=== PATIENT | male | born 1995 | race Caucasian/White ===

== ENCOUNTER 2017-10-28 15:11 | Outpatient (CLI) | payer OTHER | END 2017-10-28 15:19 | disposition home or self-care (01) | LOC: RAD 15:11 | DX: M54.2 Cervicalgia (principal); M54.5 Low back pain; M54.6 Pain in thoracic spine ==

== ENCOUNTER → 2023-02-18 07:21 | Outpatient (CLI) | payer OTHER ==
[2023-02-18 08:15] LABS: HEMATOCRIT 44.7 % (39.0-48.0); HEMOGLOBIN 15.6 g/dL (13-16.00); MEAN CELL VOLUME 83.2 fL (80.0-100.00); MEAN CORPUSCULAR HGB CONC 34.8 g/dl (32.0-36.0); PLATELET COUNT 223 K/uL (150-450); RED BLOOD COUNT 5.37 M/uL (4.00-6.00); RED CELL DISTRIBUTION WIDTH 12.9 % (11.5-14.5)
[2023-02-18 08:45] LABS: ALBUMIN 4.5 gm/dL (3.4-5.0); BILIRUBIN TOTAL 1.08 mg/dL (0.3-1.2); CALCIUM 9.4 mg/dL (8.5-10.1); CHOL HDL RATIO 2.7 (0-5.0); CREATININE SERUM 1.07 mg/dL (0.70-1.30); GFR 81.15; GLOBULINA 3.5 G/DL (2.4-3.5); POTASSIUM 4.07 mEq/L (3.5-5.1); TSH 2.6 uIU/mL (0.358-3.74)
[2023-02-18 08:47] LABS: URIC ACID 4.2 mg/dL (3.5-8.5)
[2023-02-18 09:18] LABS: URINE APPEARANCE Clear; URINE BILIRRUBIN Negative (NEGATIVE); URINE BLOOD Negative; URINE COLOR Yellow; URINE GLUCOSE Negative (NEGATIVE); URINE LEUKOCYTE Negative; URINE NITRATE Negative; URINE PROTEIN Negative (NEGATIVE); URINE UROBILINOGEN 0.2 E.U./dl
[2023-02-18 09:49] LABS: URINE BACTERIA 0 uL (0.0-1933); URINE RBC 1.2 uL (0.0-20.8); URINE WBC 0.9 uL (0.0-23.2)
== END | disposition home or self-care (01) ==
LOC: LAB 07:21
PROVIDERS: ATTEND General Practice
DX: E55.9 Vitamin D deficiency, unspecified (principal); E16.2 Hypoglycemia, unspecified; N52.9 Male erectile dysfunction, unspecified; I10 Essential (primary) hypertension; E78.5 Hyperlipidemia, unspecified; E03.9 Hypothyroidism, unspecified; M10.9 Gout, unspecified

== ENCOUNTER 2023-02-18 08:07 | Outpatient (CLI) | payer OTHER | END 2023-02-18 08:20 | disposition home or self-care (01) | LOC: RAD 08:07 | PROVIDERS: ATTEND General Practice | DX: M77.30 Calcaneal spur, unspecified foot (principal); M51.9 Unspecified thoracic, thoracolumbar and lumbosacral intervertebral disc disorder ==

== ENCOUNTER → 2023-02-25 | Outpatient (CLI) | payer OTHER | END | disposition home or self-care (01) | LOC: SONOGRAMA 10:49 | PROVIDERS: ATTEND General Practice | DX: N45.2 Orchitis (principal) ==

== ENCOUNTER 2024-08-31 06:21 | Outpatient (CLI) | payer OTHER ==
[2024-08-31 07:14] LABS: BASO % 0.4 % (0.1-1.2); EOS % 1.3 % (0.7-7.0); HEMATOCRIT 44.9 % (40.1-51.0); HEMOGLOBIN 15.4 g/dL (13.7-17.5); LYMPH # 2.67 (1.18-3.74); LYMPH % 33.7 % (19.3-53.1); MEAN CORPUSCULAR HEMOGLOBIN 27.9 pg (25.6-32.2); MONO # 0.68 (0.24-0.82); MONO % 8.6 % (4.7-12.5); NEUT # 4.42 (1.56-6.13); NEUT % 55.7 % (34.0-71.1); PLATELET COUNT 219 K/uL (163-369); RED BLOOD COUNT 5.52 M/uL (4.63-6.08); RED CELL DISTRIBUTION WIDTH 11.8 % (11.6-14.4)
[2024-08-31 07:16] LABS: PH,URINE 6.5 (5.0-8.0); URINE APPEARANCE Clear; URINE BILIRRUBIN Negative (NEGATIVE); URINE BLOOD Negative; URINE COLOR Yellow; URINE GLUCOSE Negative (NEGATIVE); URINE KETONE 15 (NEGATIVE); URINE LEUKOCYTE Negative; URINE NITRATE Negative; URINE PROTEIN Negative (NEGATIVE); URINE UROBILINOGEN 0.2 E.U./dl
[2024-08-31 07:25] LABS: URINE BACTERIA 1.2 uL (0.0-1933); URINE EPITHELIAL CELLS 0.6 uL (0.0-38.8); URINE RBC 1.4 uL (0.0-20.8); URINE WBC 1.5 uL (0.0-23.2)
[2024-08-31 07:34] LABS: CREATININE URINE RANDOM 89.8 MG/DL (30-125)
[2024-08-31 07:56] LABS: URIC ACID 3.4 mg/dL (3.5-8.5)
[2024-08-31 07:59] LABS: ALBUMIN 4.5 gm/dL (3.4-5.0); BILIRUBIN TOTAL 0.7 mg/dL (0.3-1.2); CALCIUM 9.6 mg/dL (8.5-10.1); CHOL HDL RATIO 3.2 (0-5.0); CREATININE SERUM 1.06 mg/dL (0.70-1.30); GFR 81.49; GLOBULINA 3.3 G/DL (2.4-3.5); POTASSIUM 3.93 mEq/L (3.5-5.1); PROSTATIC SPECIFIC ANTIGEN 0.792 NG/ML (0.010-4.00); TOTAL PROTEIN 7.8 gm/dL (6.4-8.2); TSH 2.41 uIU/mL (0.358-3.74)
== END 2024-08-31 06:45 | disposition home or self-care (01) ==
LOC: LAB 06:21
PROVIDERS: ATTEND General Practice
DX: E78.5 Hyperlipidemia, unspecified (principal); E03.9 Hypothyroidism, unspecified; I10 Essential (primary) hypertension; Z12.5 Encounter for screening for malignant neoplasm of prostate; N18.9 Chronic kidney disease, unspecified; M10.9 Gout, unspecified; E55.9 Vitamin D deficiency, unspecified